=== PATIENT | female | born 1990 | race African-American/Black ===

== ENCOUNTER 2017-02-08 05:25 | Emergency (ER) | payer MEDICAID, OTHER ==
[2017-02-08 06:01] VITALS: BP 132/61
--- NOTE | 2017-02-08 06:35 | EDM.PDOC ---
<Olegario Galvan - Last Filed: 02/08/17 06:39> ED HPI GENERAL MEDICAL PROBLEM - General Chief Complaint: Gastrointestinal Problem Stated Complaint: VOMITING Time Seen by Provider: 02/08/17 06:22 Source of Information: Reports: Patient, Old Records, RN Notes Reviewed History Limitations: Reports: No Limitations - History of Present Illness INITIAL COMMENTS - FREE TEXT/NARRATIVE: Drove herself here Chief complaint: Vomiting History of present illness: 26-year-old female with history of Melissa fundoplication for reflux, depression anxiety and mood disorder, possible bipolar or schizophrenia, does take lithium regularly as well as Seroquel Onset of nausea and retching with some emesis since 9:30 PM. Poor sleep during the night because of this Similar symptoms in the past with a few visits to emergency for this complaint Denies any change in medication, she is not taking the Adderall causing thinks her head feel "weird". Otherwise she does take her regular medications She has IUD in place No diarrhea no fever no abdominal pain Used to take ondansetron, does not have any of that at home Denies any alcohol or drug use and does not use marijuana Chest Pain Score (Numeric/FACES): 4 - Related Data Allergies Allergy/AdvReac Type Severity Reaction Status Date / Time No Known Allergies Allergy Verified 02/08/17 06:01 Home Meds: Home Meds Ranitidine HCl [Ranitidine] 150 mg PO BID 01/03/16 [History] LORazepam [Ativan] 1 mg PO BID 05/08/16 [History] Zolpidem [Ambien] 5 mg PO BEDTIME PRN 05/08/16 [History] hydrOXYzine HCl [Atarax] 25 mg PO QID PRN 05/08/16 [History] Amphetamine/Dextroamphetamine [Adderall] 10 mg PO DAILY 02/08/17 [History] [place] Carbonate 300 mg PO DAILY 02/08/17 [History] [place] Carbonate 600 mg PO BEDTIME 02/08/17 [History] Past Medical History HEENT History: Reports: Impaired Vision Other HEENT History: recent ear infection amoxicillin course completed. Nose fx Gastrointestinal History: Reports: GERD, Helicobacter Pylori Other Gastrointestinal History: Acid reflux CERTIFIED HOME HEALTH AIDE History: Reports: Polycystic Ovaries, Other (See Below) Other OB/BYN History: Is on oral control pill Neurological History: Reports: Concussion, Head Trauma Psychiatric History: Reports: Anxiety, Depression, Panic Attack, PTSD, Schizophrenia, Suicidal Ideation Hematologic History: Reports: Anemia, Iron Deficiency - Infectious Disease History Infectious Disease History: Reports: Chicken Pox - Past Surgical History GI Surgical History: Reports: Cholecystectomy, Melissa Fundoplication Other Female Surgeries/Procedures: Vaginosis. Other Musculoskeletal Surgeries/Procedures:: bone spur left toe nasal fx Social & Family History - Tobacco Use Smoking Status *Q: Never Smoker Second Hand Smoke Exposure: No - Caffeine Use Caffeine Use: Reports: Tea - Alcohol Use Days Per Week of Alcohol Use: 0 - Recreational Drug Use Recreational Drug Use: No - Living Situation & Occupation Living situation: Reports: with Significant Other Occupation: Employed ED ROS GENERAL - Review of Systems Review Of Systems: See Below Constitutional: Reports: Fatigue. Denies: Fever, Diaphoresis HEENT: Reports: No Symptoms Respiratory: Reports: No Symptoms Cardiovascular: Reports: No Symptoms GI/Abdominal: Reports: Decreased Appetite, Nausea, Vomiting. Denies: Abdominal Pain, Constipation, Diarrhea, Distension : Reports: No Symptoms Musculoskeletal: Reports: No Symptoms Skin: Reports: No Symptoms Neurological: Reports: No Symptoms Psychiatric: Reports: No Symptoms Hematologic/Lymphatic: Reports: No Symptoms Immunologic: Reports: No Symptoms ED EXAM, GI/ABD - Physical Exam Exam: See Below Exam Limited By: No Limitations General Appearance: Alert, No Apparent Distress, Other (She actually appears quite well smiling alert and her vital signs are normal, no difficulty speaking or breathing or moving) Eyes: Bilateral: Normal Appearance Ears: Normal External Exam, Hearing Grossly Normal Nose: Normal Inspection, Normal Mucosa Throat/Mouth: Normal Gums, Other (Dry mouth and tongue) Head: Atraumatic Neck: Normal Inspection, Supple, Non-Tender. No: Limited Range of Motion, Lymphadenopathy (R), Lymphadenopathy (L) Respiratory/Chest: No Respiratory Distress, Lungs Clear, Normal Breath Sounds, No Accessory Muscle Use Cardiovascular: Normal Peripheral Pulses, Regular Rate, Rhythm, No Murmur GI/Abdominal: Normal Bowel Sounds, Soft, Non-Tender Back Exam: Normal Inspection Extremities: Normal Inspection, Non-Tender, No Pedal Edema Neurological: Alert, Oriented, No Motor/Sensory Deficits Psychiatric: Normal Affect, Normal Mood Skin Exam: Warm, Dry, Intact, Normal Color, No Rash Lymphatic: No Adenopathy Course - Vital Signs Last Recorded V/S: Last Vital Signs Temp 97.7 F 02/08/17 06:00 Pulse 97 02/08/17 06:00 Resp 16 02/08/17 06:00 BP 132/61 02/08/17 06:00 Pulse Ox 98 02/08/17 06:00 - Orders/Labs/Meds Orders: Active Orders 24 hr Category Date Time Status Peripheral IV Care [RC] . DIRECTED Care 02/08/17 06:36 Active LITHIUM [REF] Stat Lab 02/08/17 06:36 Ordered Sodium Chloride 0.9% [Normal Saline] 1,000 ml Med 02/08/17 06:45 Active IV ASDIRECTED Sodium Chloride 0.9% [Saline Flush] Med 02/08/17 06:36 Active 10 ml FLUSH ASDIRECTED PRN Peripheral IV Insertion Adult [OM.PC] Routine Oth 02/08/17 06:36 Ordered Medication Orders Sodium Chloride (Normal Saline) 1,000 mls @ 500 mls/hr IV ASDIRECTED KARLENE Last Admin: 02/08/17 07:08 Dose: 500 mls/hr Sodium Chloride (Saline Flush) 10 ml FLUSH ASDIRECTED PRN PRN Reason: Keep Vein Open Labs: Laboratory Tests 02/08/17 02/08/17 Range/Units 06:51 06:51 WBC 8.1 (4.5-11.0) K/uL RBC 5.10 (3.30-5.50) M/uL Hgb 14.4 (12.0-15.0) g/dL Hct 43.0 (36.0-48.0) % MCV 84 (80-98) fL MCH 28 (27-31) pg MCHC 34 (32-36) % Plt Count 301 (150-400) K/uL Sodium 140 (140-148) mmol/L Potassium 4.0 (3.6-5.2) mmol/L Chloride 108 (100-108) mmol/L Carbon Dioxide 25 (21-32) mmol/L Anion Gap 7.0 (5.0-14.0) mmol/L BUN 9 (7-18) mg/dL Creatinine 0.9 (0.6-1.0) mg/dL Est Cr Clr Drug Dosing 72.73 mL/min Estimated GFR (MDRD) > 60 (>60) Glucose 94 (74-106) mg/dL Calcium 8.6 (8.5-10.1) mg/dL TSH, Ultra Sensitive 0.351 L (0.358-3.740) uIU/mL Meds: Medications Generic Name Dose Route Start Last Admin Trade Name Freq PRN Reason Stop Dose Admin Sodium Chloride 1,000 mls @ 500 mls/hr 02/08/17 06:45 02/08/17 07:08 Normal Saline IV 500 mls/hr ASDIRECTED KARLENE Administration Sodium Chloride 10 ml 02/08/17 06:36 Saline Flush FLUSH ASDIRECTED PRN Keep Vein Open Discontinued Medications Generic Name Dose Route Start Last Admin Trade Name Freq PRN Reason Stop Dose Admin Ondansetron HCl 4 mg 02/08/17 06:36 02/08/17 07:09 Zofran IVPUSH 02/08/17 06:37 4 mg ONETIME ONE Administration - Re-Assessments/Exams Free Text/Narrative Re-Assessment/Exam: 02/08/17 06:43 26-year-old female who reports nausea and vomiting since 9:30 PM. However appears to be undistressed. Intravenous saline labs and ondansetron 4 mg ordered Transit care of Dr. Dickinson pending results, response to treatment, and disposition. Departure - Departure Disposition: Home, Self-Care 01 Clinical Impression: Mild dehydration Nausea and vomiting Qualifiers: Vomiting type: unspecified Vomiting Intractability: non-intractable Qualified Code(s): R11.2 - Nausea with vomiting, unspecified - Discharge Information Referrals: Caridad De Los Santos MD [Primary Care Provider] - Forms: ED Department Discharge Additional Instructions: Use Zofran as needed to help control nausea and vomiting symptoms, Please followup with your primary care provider in 3-5 days if not better, please call return to the emergency department with worsening of symptoms. <OfficerOtto - Last Filed: 02/08/17 07:37> Departure - Departure Time of Disposition: 07:36 - Assessment/Plan Plan: Assessment Acuity = acute Site and laterality = gastroenteritis Etiology = probably viral in nature Manifestations = nausea and vomiting Location of injury = home Lab values = CBC, BMP, TSH within normal limits lithium level is pending Plan She had good improvement with Zofran provided in emergency department had no nausea and vomiting symptoms while in the ED, plan is discharge to home with Zofran to use as needed follow-up with primary care 3-5 days if not better Patient was in agreement with the plan all questions were answered, they were instructed to return to the emergency department or call for worsening symptoms. This note was dictated using [employer] voice recognition software please call with any questions.
[2017-02-08] MEDS ORDERED: Ondansetron 4 MG/2 ML SDV IVPUSH ONE (06:36)
[2017-02-08] MEDS ORDERED: Sodium Chloride 0.9% 10 ML Syringe FLUSH PRN (06:36)
[2017-02-08] MEDS ORDERED: Sodium Chloride 0.9% 1,000 ML IV SCH (06:45)
== END 2017-02-08 08:05 | disposition home or self-care (01) ==
LOC: JP.ED 05:25
DX: E86.0 Dehydration (principal); K21.9 Gastro-esophageal reflux disease without esophagitis; F41.9 Anxiety disorder, unspecified; F32.9 Major depressive disorder, single episode, unspecified; F43.10 Post-traumatic stress disorder, unspecified; D64.9 Anemia, unspecified; Z90.49 Acquired absence of other specified parts of digestive tract; Z79.899 Other long term (current) drug therapy
CPT/HCPCS: 80048; 84443; 85027; 96361; 96374; 99284; J2405; J7040; 36415

== ENCOUNTER 2017-07-23 08:53 | Emergency (ER) | payer OTHER ==
[2017-07-23 09:06] VITALS: BP 130/81
--- NOTE | 2017-07-23 09:45 | EDM.PDOC ---
ED HPI GENERAL MEDICAL PROBLEM - General Chief Complaint: Headache Stated Complaint: MIGRAINE W/VOMITING Time Seen by Provider: 07/23/17 09:15 Source of Information: Reports: Patient History Limitations: Reports: No Limitations - History of Present Illness INITIAL COMMENTS - FREE TEXT/NARRATIVE: 27-year-old female who has had a long-standing right maxillary toothache for several months, is now 7 weeks gestation and is having a persistent right-sided headache. Intermittent nausea. No fevers or chills, no facial swelling. She has not been on any antibiotic, and has a dental appointment in 3 weeks. She's been taking ibuprofen and naproxen without relief. Headache Pain Score (Numeric/FACES): 8 - Related Data Allergies Allergy/AdvReac Type Severity Reaction Status Date / Time No Known Allergies Allergy Verified 07/23/17 09:12 Home Meds: Home Meds Ondansetron [Zofran] 1 tab PO ASDIRECTED 07/23/17 [History] Sertraline [Zoloft] 25 mg PO BEDTIME 07/23/17 [History] Past Medical History HEENT History: Reports: Impaired Vision Other HEENT History: recent ear infection amoxicillin course completed. Nose fx Gastrointestinal History: Reports: GERD, Helicobacter Pylori Other Gastrointestinal History: Acid reflux [employer] History: Reports: Polycystic Ovaries, Other OB/BYN History: Is on oral control pill Neurological History: Reports: Concussion, Head Trauma Psychiatric History: Reports: Anxiety, Depression, Panic Attack, PTSD, Schizophrenia, Suicidal Ideation Hematologic History: Reports: Anemia, Iron Deficiency - Infectious Disease History Infectious Disease History: Reports: Chicken Pox - Past Surgical History GI Surgical History: Reports: Cholecystectomy, Melissa Fundoplication Other Musculoskeletal Surgeries/Procedures:: bone spur left toe, nasal fx Social & Family History - Tobacco Use Smoking Status *Q: Never Smoker Second Hand Smoke Exposure: No - Caffeine Use Caffeine Use: Reports: Tea - Alcohol Use Days Per Week of Alcohol Use: 0 - Recreational Drug Use Recreational Drug Use: No - Living Situation & Occupation Living situation: Reports: with Significant Other Occupation: Employed ED ROS GENERAL - Review of Systems Review Of Systems: See Below Constitutional: Denies: Fever, Chills HEENT: Reports: Dental Pain. Denies: Throat Pain Respiratory: Denies: Shortness of Breath Cardiovascular: Denies: Edema GI/Abdominal: Reports: Nausea, Vomiting. Denies: Abdominal Pain : Reports: No Symptoms Neurological: Reports: No Symptoms ED EXAM, GENERAL - Physical Exam Exam: See Below Exam Limited By: No Limitations General Appearance: Alert, No Apparent Distress Eye Exam: Bilateral Eye: Normal Inspection Head: Atraumatic, Other (No facial swelling) Neck: Normal Inspection Respiratory/Chest: No Respiratory Distress, Lungs Clear Course - Vital Signs Last Recorded V/S: Last Vital Signs Temp 97.2 F 07/23/17 09:10 Pulse 81 07/23/17 09:10 Resp 16 07/23/17 09:10 BP 130/81 07/23/17 09:10 Pulse Ox 97 07/23/17 09:10 - Re-Assessments/Exams Free Text/Narrative Re-Assessment/Exam: 07/23/17 09:43 Patient will be started on Pen-Vee K 500 mg 4 times a day and given 10 Vicodin to take for pain for the next 48-72 hours. If not improving satisfactorily she can recheck in the next 3-6 days, or sooner if worsening such as swelling or fever. Otherwise finish the ten-day course of penicillin. Departure - Departure Time of Disposition: 10:37 Disposition: Home, Self-Care 01 Condition: Good Clinical Impression: Pain, dental, Tension-type headache - Discharge Information Instructions: Dental Abscess, [id number] Referrals: Caridad De Los Santos MD [Primary Care Provider] - Forms: ED Department Discharge Care Plan Goals: Take antibiotic 4 times a day until gone, especially if improving. Consider rechecking in 3-6 days if not improving satisfactorily. Continue with ibuprofen and add stronger pain medications if needed for the next 2-3 days. Return if worsening such as facial swelling or fever.
== END 2017-07-23 10:08 | disposition home or self-care (01) ==
LOC: JP.ED 08:53
DX: O99.89 Other specified diseases and conditions complicating pregnancy, childbirth and the puerperium (principal); K08.89 Other specified disorders of teeth and supporting structures; G44.209 Tension-type headache, unspecified, not intractable; Z3A.01 Less than 8 weeks gestation of pregnancy
CPT/HCPCS: 99284